=== PATIENT | female | born 1990 | race Caucasian/White ===

== ENCOUNTER 2019-09-05 22:09 | Inpatient (IN) ==
[2019-09-05] MEDS ORDERED: NS 0.9% 1000 ml BAG 1,000 ML IV ONE (22:28)
[2019-09-05 23:22] LABS: Urine Appearance Cloudy; Urine Bilirubin Negative (Negative); Urine Blood 3+ (Negative); Urine Color Yellow; Urine Glucose Negative (Negative); Urine Ketones Negative (Negative); Urine Nitrite Negative (Negative); Urine Protein Negative (Negative); Urine Specific Gravity 1.024 (1.010-1.030); Urine Urobilinogen Positive (Negative)
[2019-09-05 23:31] LABS: ABS Eosinophils 0.1 10^3/ul (0-0.6); ABS Lymphocytes 2.5 10^3/ul (1.0-4.8); ABS Monocytes 0.6 10^3/ul (0-0.8); Eosinophil % 0.9 %; Hematocrit 39 % (35-47); Hemoglobin 13.2 g/dL (12.0-16.0); Lymphocyte % 26.1 %; Mean Corpuscular HGB Conc 34 g/dL (31-36); Mean Corpuscular Hemoglobin 30 pg (27-31); Mean Corpuscular Volume 87 fL (80-97); Mean Platelet Volume 8.1 fL (7.4-10.4); Nucleated Red Blood Cells % 0.2; Platelet Count 246 10^3/uL (150-450); Red Blood Count 4.47 10^6 /uL (3.70-4.87); Red Cell Distribution Width 12 % (10-15); White Blood Count 9.5 10^3/uL (3.5-10.8)
[2019-09-05 23:43] LABS: Urine Benzodiazepine Screen None Detected (None Detect); Urine Opiates Screen None Detected (None Detect)
[2019-09-05 23:49] LABS: ALT 13 U/L (7-52); AST 12 U/L (13-39); Albumin/Globulin Ratio 1.3 (1-3); Alkaline Phosphatase 60 U/L (34-104); Anion Gap 8 mmol/L (2-11); BUN/Creatinine Ratio 17.5 (8-20); Blood Urea Nitrogen 14 mg/dL (6-24); CO2 Carbon Dioxide 24 mmol/L (22-32); Calcium 9.2 mg/dL (8.6-10.3); Chloride 108 mmol/L (101-111); EGFR African American 103.3 (>60); EGFR Non-African American 85.4 (>60); Globulin 3.1 g/dL (2-4); Glucose 97 mg/dL (70-100); Potassium 3.4 mmol/L (3.5-5.0); Sodium 140 mmol/L (135-145); Total Protein 7.1 g/dL (6.4-8.9)
[2019-09-05 23:55] LABS: HCG Pregnancy < 0.60 mIU/mL
[2019-09-05 23:56] LABS: Urine Bacteria 1+ (Absent); Urine Red Blood Cell Trace(0-2/hpf) (Absent); Urine Squamous Epithelial Cell Present (Absent); Urine White Blood Cell Trace(0-5/hpf) (Absent)
[2019-09-06 00:11] LABS: Acetaminophen < 15 mcg/mL; Alcohol, S < 10 mg/dL (<10); Salicylate < 2.50 mg/dL (<30)
[2019-09-06 00:24] LABS: TSH (Thyroid Stimulating Horm) 1.52 mcIU/mL (0.34-5.60)
[2019-09-06] MEDS ORDERED: Al Hydrox/Mg Hydrox/Simet LIQ 30 ML UDC PO PRN (03:16)
[2019-09-06] MEDS: Vitamin THERAPEUTIC TAB PO SCH (08:40)
[2019-09-06] MEDS: FluvoxaMINE 50 mg TAB (NF) PO SCH (11:59)
[2019-09-06] MEDS: Divalproex ER 500 mg TAB (*) PO SCH ×2 (11:59→22:09)
[2019-09-07] MEDS: Divalproex ER 500 mg TAB (*) PO SCH ×2 (08:36→21:18)
[2019-09-07] MEDS: FluvoxaMINE 50 mg TAB (NF) PO SCH (08:37)
[2019-09-07] MEDS: Vitamin THERAPEUTIC TAB PO SCH (08:37)
[2019-09-08 08:52] LABS: HDL Cholesterol 52.8 mg/dL
[2019-09-08] MEDS: FluvoxaMINE 50 mg TAB (NF) PO SCH (09:07)
[2019-09-08] MEDS: Vitamin THERAPEUTIC TAB PO SCH (09:07)
[2019-09-08] MEDS: Divalproex ER 500 mg TAB (*) PO SCH ×2 (09:07→20:32)
[2019-09-09] MEDS: Divalproex ER 500 mg TAB (*) PO SCH ×2 (08:59→20:42)
[2019-09-09] MEDS: FluvoxaMINE 50 mg TAB (NF) PO SCH (08:59)
[2019-09-09] MEDS: Vitamin THERAPEUTIC TAB PO SCH (08:59)
[2019-09-10] MEDS: Divalproex ER 500 mg TAB (*) PO SCH ×2 (09:19→20:53)
[2019-09-10] MEDS: FluvoxaMINE 50 mg TAB (NF) PO SCH (09:19)
[2019-09-10] MEDS: Vitamin THERAPEUTIC TAB PO SCH (09:19)
[2019-09-11] MEDS: FluvoxaMINE 50 mg TAB (NF) PO SCH (09:02)
[2019-09-11] MEDS: Vitamin THERAPEUTIC TAB PO SCH (09:02)
[2019-09-11] MEDS: Divalproex ER 500 mg TAB (*) PO SCH (09:02)
[2019-09-11 09:06] VITALS: BP 105/62
== END 2019-09-11 14:30 | disposition home or self-care (01) | DRG 751 ==
LOC: ED 22:09 → BSU 09-06 02:56
PROVIDERS: ADMIT Psychiatry & Neurology Addiction Psychiatry; ATTEND Psychiatry & Neurology Addiction Psychiatry